=== PATIENT | female | born 1980 | race Caucasian/White ===

== ENCOUNTER 2021-06-08 11:54 | Emergency (ER) | payer MEDICAID ==
[~2021-06-08] VITALS: Ht 182.9 cm; Wt 85.0 kg
[2021-06-08 12:09] VITALS: TEMP 97.7
[2021-06-08] MEDS ORDERED: CYANOCOBAL1000 MCG/1 IM (12:59)
[2021-06-08] MEDS ORDERED: TIROSINT-S150 MCG/1 PO (13:00)
[2021-06-08] MEDS ORDERED: WELLBUTRIN XL150 MG PO (13:00)
[2021-06-08] MEDS ORDERED: NORCO 325 MG-51 TAB PO ×3 (14:15→15:39)
[2021-06-08] MEDS ORDERED: FLEXERIL 1010 MG/TAB PO ×3 (14:31→15:39)
[2021-06-08 15:41] VITALS: BP 128/87; PULSE 71
== END 2021-06-08 15:47 | disposition home or self-care (01) ==
LOC: COL.ER 11:54
DX: S82.041A Displaced comminuted fracture of right patella, initial encounter for closed fracture (principal); F32.9 Major depressive disorder, single episode, unspecified; E03.9 Hypothyroidism, unspecified; Z88.6 Allergy status to analgesic agent; Z79.890 Hormone replacement therapy; Z79.899 Other long term (current) drug therapy; W01.0XXA Fall on same level from slipping, tripping and stumbling without subsequent striking against object, initial encounter
CPT/HCPCS: J1885; J2270; J3010; L1830; L1846